=== PATIENT | male | born 1960 | race Caucasian/White ===

== ENCOUNTER 2023-05-11 12:19 | Outpatient (CLI) | payer OTHER, SELFPAY ==
--- NOTE | ~2023-05-11 | XR_ITS ---
Right Knee Technique: AP, lateral, and sunrise views were obtained. Clinical History: Pain Findings: No fracture or dislocation is seen. Osseous alignment is anatomic. There is mild degenerati ve spurring of the patella and intercondylar notch. Soft tissues are unremarkable. No joint effusion is seen. Impression: Mild degenerative spurring, as above. Reviewed, dictated and finalized at location . EAD MAINTENANCE SPECIALIST Impression: Mild degenerative spurring, as above.
== END 2023-05-11 12:20 | disposition home or self-care (01) ==
PROVIDERS: PCP Internal Medicine Infectious Disease; Visit Provider Orthopaedic Surgery
DX: M25.561 Pain in right knee (principal)
CPT/HCPCS: 73564

== ENCOUNTER 2023-11-23 08:03 | Outpatient (CLI) | payer OTHER, SELFPAY ==
--- NOTE | ~2023-11-23 | XR_ITS ---
Right Knee Technique: AP, lateral, and sunrise views were obtained. Clinical History: Pain Findings: No fracture or dislocation is seen. Osseous alignment is anatomic. Joint there is mild tric ompartmental degenerative change. Soft tissues are unremarkable. No joint effusion is seen. Impression: Mild tricompartmental degenerative change. Reviewed, dictated and finalized at [facility]. Impression: Mild tricompartmental degenerative change.
== END 2023-11-23 08:04 | disposition home or self-care (01) ==
PROVIDERS: PCP Internal Medicine Infectious Disease; Visit Provider Orthopaedic Surgery
DX: M17.11 Unilateral primary osteoarthritis, right knee (principal)
CPT/HCPCS: 73564

== ENCOUNTER 2024-01-17 07:31 | Outpatient (CLI) | payer OTHER, SELFPAY ==
--- NOTE | 2024-01-17 07:52 | ECG_ITS ---
Test Date: 2024-01-17 08:11:12 Measurements Intervals [place] Rate: 75 P: 42 [place]: 204 QRS: -16 QRSD: 112 T: 42 QT: 384 QTc: 429 Interpretive Statements SINUS RHYTHM No previous ECG available for comparison Electronically Signed On 01-17-2024 12:08:42 CDT by Martinez Doll M.D.
[2024-01-17 08:31] LABS: Hematocrit 51.3 % (42.0-52.0); Hemoglobin 17.7 g/dL (14.0-18.0)
[2024-01-17 09:03] LABS: Albumin Level 4.6 g/dL (3.5-5.1); Estimated Glomerular Filt Rate > 60; Glucose 180 mg/dL (65-110)
[2024-01-17 11:55] LABS: Hemoglobin A1C 7.4 % (<5.7)
== END 2024-01-17 07:32 | disposition home or self-care (01) ==
PROVIDERS: PCP Internal Medicine Infectious Disease; Visit Provider Orthopaedic Surgery
DX: M17.11 Unilateral primary osteoarthritis, right knee (principal); E11.9 Type 2 diabetes mellitus without complications
CPT/HCPCS: 36415; 82040; 82565; 82947; 83036; 85014; 85018; 93005

== ENCOUNTER 2024-01-31 14:20 | Outpatient (CLI) | payer OTHER, SELFPAY ==
--- NOTE | ~2024-01-31 | CT_ITS ---
EXAMINATION: CT LE RT wo con DATE: 01/31/2024 14:59 INDICATION: Right knee osteoarthritis. Preoperative planning. TECHNIQUE: Computed tomography (CT) of the right lower limb was performed without intravenous contras t. Automated exposure control and iterative reconstruction technique were employed. The dose-length p roduct was 1740.43 mGy-cm. COMPARISON: None FINDINGS: Alignment is normal. No fracture. There is moderate right hip osteoarthritis. Right knee de monstrates moderate osteoarthritis of lateral compartment and mild osteoarthritis of medial and lin lofemoral compartments. There is a small knee joint effusion. IMPRESSION: 1. Moderate right knee osteoarthritis. 2. Small right knee joint effusion. 3. Moderate right hip osteoarthritis. Reviewed, dictated and finalized at location A.
== END 2024-01-31 14:21 | disposition home or self-care (01) ==
PROVIDERS: PCP Internal Medicine Infectious Disease; Visit Provider Orthopaedic Surgery
DX: M17.11 Unilateral primary osteoarthritis, right knee (principal); M25.461 Effusion, right knee; M16.11 Unilateral primary osteoarthritis, right hip
CPT/HCPCS: 73700

== ENCOUNTER 2024-03-17 11:50 | Outpatient (CLI) | payer OTHER, SELFPAY ==
[2024-03-17 13:24] LABS: Basophils Percent Auto 0.5 % (0.2-1.2); Eosinophils Absolute Auto 0.2 K/mm3 (0-0.3); Eosinophils Percent Auto 2.4 % (0-4.4); Hematocrit 48.2 % (42.0-52.0); Hemoglobin 17.5 g/dL (14.0-18.0); Immature Granulocyte Absolute 0.02 K/mm3 (0.00-0.031); Immature Granulocyte Percent A 0.2 % (0-0.5); Lymphocytes Percent Auto 22.7 % (18.3-44.2); Mean Corpuscular HGB Conc 36.3 g/dl (32-36); Mean Corpuscular Hemoglobin 31.7 pg (26-34); Mean Corpuscular Volume 87.3 fl (80-100); Mean Platelet Volume 10.4 fl (7.4-10.4); Monocytes Absolute Auto 0.4 K/mm3 (0.1-0.6); Monocytes Percent Auto 4.3 % (2.6-8.5); Neutrophils Absolute Auto 5.8 K/mm3 (1.3-6.7); Neutrophils Percent Auto 69.9 % (45.5-73.1); Platelet Count Result 248 k/mm3 (150-375); Red Blood Count 5.52 M/mm3 (4.6-6.20); Red Cell Distribution Width 12.5 % (11.5-14.5); White Blood Count 8.4 K/mm3 (4.5-10.0)
[2024-03-17 13:30] LABS: Albumin Level 4.7 g/dL (3.5-5.1)
[2024-03-17 13:33] LABS: Anion Gap 9 mmol/L (4-12); Blood Urea Nitrogen 18 mg/dL (9-20); Calcium 9.4 mg/dL (8.4-10.2); Carbon Dioxide 28 mmol/L (22-30); Chloride 102 mmol/L (98-107); Estimated Glomerular Filt Rate > 60; Glucose 191 mg/dL (65-110); Potassium 3.7 mmol/L (3.4-5.0); Sodium 139 mmol/L (137-145)
[2024-03-17 13:49] LABS: Urine Cotinine NEGATIVE
[2024-03-17 14:34] LABS: MRSA (PCR) NOT DETECTED (NOT DETECTE)
== END 2024-03-17 11:51 | disposition home or self-care (01) ==
PROVIDERS: Anesthesiology; PCP Internal Medicine Infectious Disease; Visit Provider Orthopaedic Surgery
DX: M17.11 Unilateral primary osteoarthritis, right knee (principal); E11.9 Type 2 diabetes mellitus without complications; Z01.818 Encounter for other preprocedural examination
CPT/HCPCS: 36415; 80048; 80307; 82040; 85025; 87641

== ENCOUNTER 2024-04-03 01:17 | Day surgery (SDC) | payer OTHER, SELFPAY ==
[2024-03-17 12:18] VITALS: BMI 31.1
--- NOTE | 2024-03-17 12:38 | PC.NURSE ---
Report to the Outpatient Waiting Room, entrance under the green pavilion located off [facility], at time _0830am on date __04/03/24 . Planned Procedure Time: ___10:30am .? Time changes happen often and if your time is changed the preop area will call you the afternoon before. - You and your visitor will be asked to self-screen and do not enter if you have any COVID symptoms. Please call surgeon if you need to reschedule. - A mask is optional within the hospital at this time. Patients may have clear liquids (water, carbonated beverages, clear teas, apple juice) until 3 hours prior to surgery with a maximum of 20 ounces. - No food from midnight until time of surgery and no smoking. This includes no chewing gum, candy or mints. (07:30am) Take only the following medications with a SIP of water on the morning of surgery: DO NOT STOP ANY OF YOUR OTHER PRESCRIPTION MEDICATIONS PRIOR TO SURGERY EXCEPT THE FOLLOWING Medications to discontinue per physician Hold ASA [address] Kessler Date to take last dose 03/26/24 Hold all vitamins and supplements for 3 days prior to surgery per Anesthesia. Date to take last dose- 03/30/24 Pt to verify Celebrex & Instructions dosing too w Dr Kessler. Please no make-up, nail slovenian, hairspray, perfume, deodorant, or body powder the day of surgery.? No jewelry (including any body piercings) or valuables the day of surgery, leave them at home.? Please take a shower or bath the night before, or the morning of, surgery with an antibacterial soap.? Wear comfortable, loose fitting clothing.?Hibicleanse scrub per Dr Kessler. - Jewelry must be removed prior to entering the operating room.? Rings and piercings that are not removed may be cut off. - The hospital will not accept responsibility for valuables.? - Please leave all valuables, including medications, at home the day of surgery. If you are going home after surgery, a licensed stage driver must drive you home.? - NO public transportation without another adult if you receive anesthesia. - We recommend that an adult stay with you for 24 hours following discharge. - We also recommend that you do not drive, make important decision, drink alcoholic beverages, or take any drugs that were not prescribed by your health care provider for at least 24 hours after your discharge time. Follow any additional instructions given to you from your surgeon. Telephone instructions given to __Patient and asked if any additional questions and then verbalized understanding. Patient advised to call surgeon office or pre surgery nurse liaison [phone] if any additional questions.
[2024-04-03] VITALS (16 sets, daily range): BP systolic 128–154; BP diastolic 67–89; PULSE 57–105; RESP 12–20; TEMP 36.2–36.7; O2SAT 92–99
--- NOTE | ~2024-04-03 | XR_ITS ---
EXAMINATION: [id number]_[id number]_CR DATE: 04/03/2024 12:56 INDICATION: Postoperative evaluation following right total knee arthroplasty. TECHNIQUE: Anteroposterior and lateral views of the right knee were obtained. COMPARISON: None. FINDINGS: Right total knee arthroplasty with patellar resurfacing appears well seated and in near anatomic alig nment. No fractures identified. Expected postoperative subcutaneous and intra-articular gas. IMPRESSION: 1. Right total knee arthroplasty, negative for postoperative purposes. Reviewed, dictated and finalized at location A. DING OPERATOR
--- NOTE | 2024-04-03 07:24 | WPDHPUPDATE1 ---
History and Physical Update Update Date/Time: 04/03/24 07:24 History and Physical has been reviewed, including an updated exam of the patient. There are NO changes in the patient's condition. Risks, benefits, and alternatives have been discussed and questions answered. Patient agrees to proceed with procedure.
[2024-04-03] MEDS: LACTATED RINGERS 1,000 ML 30 ML IV CONT ×2 (08:45→12:40)
[2024-04-03] MEDS: TRANEXAMIC ACID 1,000MG/ISO100 1,000 MG/100 ML BAG 200 MG IVPB (08:45)
[2024-04-03 09:07] LABS: Glucose Point of Care 178 mg/dl (65-105)
[2024-04-03] MEDS: ACETAMINOPHEN 500 MG TABLET 1000 MG PO (09:13)
--- NOTE | 2024-04-03 09:23 | WPDANESEPPF ---
Anes - Initial Pre Proc Eval Procedure: Operation Date: 04/03/24 10:30 Proposed Procedures p Right Custom Total Knee Arthroplasty - Lucas Kessler MD Date/Time: 04/03/24 09:23 Surgeon: Lucas Kessler MD Pre Op Diagnosis: oa right knee Patient Data Age: 63 Gender: M Height: 1.78 m Weight: 97 kg Last Vital Signs Temp 36.3 C L 04/03/24 09:15 Pulse 85 04/03/24 09:15 Resp 16 04/03/24 09:15 BP 154/88 H 04/03/24 09:15 Pulse Ox 95 04/03/24 09:15 O2 Del Method Room Air 04/03/24 09:15 Allergies Allergy/AdvReac Type Severity Reaction Status Date / Time No Known Allergies Allergy Verified 03/17/24 12:06 Home Medications ?Medication ?Instructions ?Recorded ?Confirmed ?Type metformin 500 mg tablet 500 mg PO DAILY 02/23/21 04/03/24 History multivitamin 1 tablet PO DAILY 02/23/21 04/03/24 History omeprazole 20 mg capsule,delayed 20 mg PO DAILY 02/23/21 04/03/24 History release celecoxib 50 mg capsule (Celebrex) 50 mg PO DAILY 05/11/23 04/03/24 History pravastatin 20 mg tablet 20 mg PO DAILY 11/23/23 04/03/24 History aspirin 81 mg tablet,delayed 81 mg PO DAILY 12/31/23 04/03/24 History release bromelains 500 mg tablet 500 mg PO DAILY 03/17/24 04/03/24 History cetirizine 10 mg tablet (Zyrtec) 10 mg PO DAILY PRN Congestion 03/17/24 04/03/24 History fiber 1 cap PO DAILY 03/17/24 04/03/24 History garlic extract 400 mg tablet 400 mg PO DAILY 03/17/24 04/03/24 History glucosamine EWm-L2-Lejncxbbg 1 tablet PO DAILY 03/17/24 04/03/24 History mckay 1,500 mg-400 unit-100 mg tablet (Glucosamine Daily Complex) hydrochlorothiazide 25 mg tablet 25 mg PO DAILY 03/17/24 04/03/24 History latanoprost 0.005 % eye drops 1 drp ophthalmic (eye) DAILY 03/17/24 04/03/24 History omega 2-axb-umw-fish oil 100 20 cap PO DAILY 03/17/24 04/03/24 History mg-160 mg-1,000 mg capsule (Fish Oil) turmeric root extract 500 mg 500 mg PO BID 03/17/24 04/03/24 History capsule Laboratory Tests 04/03/24 08:58 POC Capillary Glucose 178 H mg/dl (65-105) Patient hx anesthesia problems: other (slow to awaken) Family hx anesthesia problems: none Results Review: All pre-operative results and documents have been reviewed as part of the pre-operative evaluation. [facility] Past Medical History Medical History Diabetes Surgical History Surgical History History of hernia repair H/O hernia repair Hx of tonsillectomy Family History Family History Father Diabetes mellitus Heart disease Mother COPD (chronic obstructive pulmonary disease) Son Diabetes mellitus Thyroid condition Social History Social History Smoking status: Never smoker Alcohol intake: never Do You Feel Safe in your Home?: Yes Lack of Transportation: No Lack of Food: Never True Current Housing: I Have Housing Concerned About Future Housing: No Difficulty Paying Gas/Electric Bills: No Difficulty Paying for Meds: No Currently Unemployed: Decline to Answer Education: High School Diploma/GED Difficulty w/ Childcare or Family Care: No Living arrangements: with family Additional living arrangements comments: son Occupation/Education: retired Anes - [employer] Final PreProcedure Day of Procedure 04/03/24 09:23 Patient weight: obese Heart: regular rate and rhythm Lungs: clear to auscultation Airway: Mallampati scale class II Neurological: alert and oriented Last oral intake: >/= 8 hours ASA classification: III Emergent: no Anesthetic plan: proceed Anesthesia type and monitoring: general LMA and standard monitoring Results Review: All pre-operative results and documents have been reviewed as part of the pre-operative evaluation. Informed Consent: The patient's anesthetic plan and its attendant risks and benefits were discussed with the patient/family/POA. Questions were solicited and answers provided to the satisfaction of the patient/family/POA.
[2024-04-03] MEDS: ceFAZolin 2 GM/D5W 50 ML 2 GM/50 ML BAG IVPB ×2 (10:13→17:26)
[2024-04-03] MEDS: SODIUM CHLORIDE 0.9% IV 37.7 ML, MORPHINE SULFATE INJ (*CRX) 2 MG, ROPivacaine HCL 1% 2... INFILTRATE (10:54)
[2024-04-03] MEDS: GENTAMICIN BONE CEMENT REFOBACIN 1 EACH TOPICAL (11:45)
[2024-04-03 12:49] LABS: Glucose Point of Care 204 mg/dl (65-105)
--- NOTE | 2024-04-03 12:57 | W.PM.PROC2 ---
Procedure Note - Detailed Date of Procedure 04/03/24 Pre-op Diagnosis Right knee degenerative arthritis. Post-op Diagnosis Same Procedure Performed Custom total knee arthroplasty, right Surgeon Lucas Kessler MD Banquet Set Up Person Lisa Fuentes PA-C Anesthesia General Findings Valgus disease. Popliteal and posterolateral capsule release. Description of Procedure Preoperative antibiotics were given. The limb was prepped and draped in the usual sterile fashion with a well-padded tourniquet high on the thigh. The limb was exsanguinated and the tourniquet inflated to 300 mmHg. A longitudinal incision was created just medial to the patella. A trivector approach to the knee was performed. Arthrotomy was taken down through the joint capsule. No significant releases were initially taken. The femur was exposed and the F1 jig was applied. The coring tool was used to remove the cartilage for the F2 jig to sit flush with the bone. The jig was pinned and the distal cut carefully taken. Caliper measurements confirmed appropriate bony resections according to the preoperative templated plan. The F4 cutting jig for the femur was applied, at the standard rotation. The AP and anterior chamfer cuts were taken. The F5 jig was applied and the posterior chamfer cuts were taken. The tibia was prepared using the T1 jig, after removing cartilage for the jig contact points. Proper alignment was checked with the alignment ashely. The tibia was cut using the T1u guide. Gap balancing was performed. Gap measurements were taken and the knee was trialed. Excellent alignment and soft tissue balancing was confirmed. The posterior cruciate ligament was recessed along the proximal tibia. The patella was cut for resurfacing. Three lug holes were drilled. Meniscal remnants were removed. The trial components were assembled. Excellent range of motion and proper soft tissue balancing were confirmed throughout the full range of motion. Patellar tracking was excellent. The knee was copiously irrigated periodically throughout the procedure. The real implants were cemented into position. Excess cement was carefully removed. The wound was closed in layers with interrupted #1 Vicryl suture, 2-0 strata fix suture, 0 strata fix suture, 2-0 strata fix suture. Steri-Strips placed on the skin with the knee flexed. Sterile bulky dressing applied. The patient was brought to the recovery room in stable condition. There were no complications. Physician assignment desk assistant, Lisa Fuentes PA-C, required for surgery; including patient positioning, draping, tissue retraction, maintaining instrument position, wound closure, and dressing placement. Implants Conformis Custom total knee arthroplasty. Cemented. Cruciate retaining. 8B insert. 38 mm oval patella. Estimated Blood Loss 100 Drains No Complications No immediate complications Condition Stable Disposition PACU [facility] Billing Surgery - Charge Forward: Surgery Billing
[2024-04-03] MEDS: fentaNYL CITRATE INJ (*CRX) 100 MCG/2 ML VIAL 25 MCG IV PUSH ×6 (13:15→13:36)
[2024-04-03] MEDS: HYDROmorphone HCL INJ (*CRX) 1 MG/ML SYR 0.5 MG IV PUSH ×4 (13:42→14:02)
[2024-04-03 15:20] LABS: Basophils Percent Auto 0.2 % (0.2-1.2); Eosinophils Percent Auto 0.1 % (0-4.4); Hemoglobin 15.2 g/dL (14.0-18.0); Immature Granulocyte Absolute 0.05 K/mm3 (0.00-0.031); Immature Granulocyte Percent A 0.5 % (0-0.5); Lymphocytes Absolute Auto 0.63 K/mm3 (0.9-3.2); Lymphocytes Percent Auto 5.9 % (18.3-44.2); Mean Corpuscular HGB Conc 35.3 g/dl (32-36); Mean Corpuscular Hemoglobin 31.1 pg (26-34); Mean Corpuscular Volume 88.1 fl (80-100); Mean Platelet Volume 10.3 fl (7.4-10.4); Monocytes Absolute Auto 0.1 K/mm3 (0.1-0.6); Monocytes Percent Auto 0.7 % (2.6-8.5); Neutrophils Percent Auto 92.6 % (45.5-73.1); Platelet Count Result 192 k/mm3 (150-375); Red Blood Count 4.88 M/mm3 (4.6-6.20); Red Cell Distribution Width 12.5 % (11.5-14.5); White Blood Count 10.8 K/mm3 (4.5-10.0)
[2024-04-03] MEDS: ACETAMINOPHEN 325 MG TABLET 650 MG PO ×2 (15:26→17:25)
[2024-04-03] MEDS: SODIUM CHLORIDE 0.9% IV 1,000 ML 125 ML IV CONT (15:28)
[2024-04-03] MEDS: ONDANSETRON INJ 4 MG/2 ML VIAL IV PUSH (15:29)
[2024-04-03 15:31] LABS: Anion Gap 5 mmol/L (4-12); Blood Urea Nitrogen 17 mg/dL (9-20); Calcium 8.4 mg/dL (8.4-10.2); Carbon Dioxide 27 mmol/L (22-30); Chloride 104 mmol/L (98-107); Estimated CRCL calculation 127 ml/min; Estimated Glomerular Filt Rate > 60; Glucose 264 mg/dL (65-110); Potassium 3.8 mmol/L (3.4-5.0); Sodium 136 mmol/L (137-145)
[2024-04-03 15:54] LABS: Atypical Lymphocytes Present; Macrocytosis 1+ (NORMAL); Schistocytes None Seen; Tear Drop Cells 1+
[2024-04-03 15:55] LABS: Giant Platelets Present; Large Platelets Present; Platelet Estimate Adequate (Adequate)
[2024-04-03] MEDS: SENNA/DOCUSATE SODIUM TABLET 2 TAB PO (17:25)
[2024-04-03] MEDS: predniSONE 5 MG TABLET PO (17:26)
[2024-04-03] MEDS: MELOXICAM 7.5 MG TABLET PO (17:26)
[2024-04-03] MEDS: traMADol HCL (*CRX) 50 MG TABLET PO (20:46)
[2024-04-03] MEDS: FAMOTIDINE 20 MG TABLET PO (20:46)
[2024-04-03] MEDS: ASPIRIN 81 MG ENTERIC TABLET PO (20:46)
[2024-04-04 00:19] VITALS: BP 125/54; PULSE 94; RESP 13; TEMP 36.3; O2SAT 97
[2024-04-04] MEDS: ACETAMINOPHEN 325 MG TABLET 650 MG PO ×2 (00:37→06:14)
[2024-04-04] MEDS: ceFAZolin 2 GM/D5W 50 ML 2 GM/50 ML BAG IVPB (00:47)
[2024-04-04 04:19] VITALS: BP 115/83; PULSE 94; RESP 14; TEMP 36.6; O2SAT 98
[2024-04-04 07:11] LABS: Basophils Percent Auto 0.3 % (0.2-1.2); Eosinophils Percent Auto 0.2 % (0-4.4); Hemoglobin 13.7 g/dL (14.0-18.0); Immature Granulocyte Absolute 0.04 K/mm3 (0.00-0.031); Immature Granulocyte Percent A 0.3 % (0-0.5); Lymphocytes Percent Auto 10.5 % (18.3-44.2); Mean Corpuscular HGB Conc 35.1 g/dl (32-36); Mean Corpuscular Hemoglobin 31.4 pg (26-34); Mean Corpuscular Volume 89.4 fl (80-100); Mean Platelet Volume 10.9 fl (7.4-10.4); Monocytes Absolute Auto 0.5 K/mm3 (0.1-0.6); Monocytes Percent Auto 4.7 % (2.6-8.5); Neutrophils Absolute Auto 9.6 K/mm3 (1.3-6.7); Platelet Count Result 200 k/mm3 (150-375); Red Blood Count 4.36 M/mm3 (4.6-6.20); Red Cell Distribution Width 12.5 % (11.5-14.5); White Blood Count 11.5 K/mm3 (4.5-10.0)
[2024-04-04 07:19] LABS: Anion Gap 2 mmol/L (4-12); Blood Urea Nitrogen 16 mg/dL (9-20); Calcium 8.3 mg/dL (8.4-10.2); Carbon Dioxide 29 mmol/L (22-30); Chloride 105 mmol/L (98-107); Estimated CRCL calculation 127 ml/min; Estimated Glomerular Filt Rate > 60; Glucose 198 mg/dL (65-110); Potassium 3.7 mmol/L (3.4-5.0); Sodium 136 mmol/L (137-145)
[2024-04-04] MEDS: oxyCODONE/ACETAMINOPHEN (*CRX) 5-325 MG TABLET 1 TABLET PO (07:58)
--- NOTE | 2024-04-04 08:18 | P.DS_ITS ---
DS: Admitting Diagnosis Discharge Date 04/04/24 Admitting Diagnosis knee arthritis DS: Discharge Diagnosis Discharge Diagnosis (1) Status post total right knee replacement: Code(s): Z96.651 - Presence of right artificial knee joint Status: Acute Assessment and Plan: Postop day 1: Right total knee arthroplasty. Patient tolerated procedure well. No complications. Pain manageable with pain medication. No numbness or tingling. We had a lengthy discussion regarding postoperative wound care, limitations, expectations, and exercises. Patient shows good understanding. He has had initial physical therapy and is tolerating it well. DVT prophylaxis: 81 mg baby aspirin b.i.d. for 14 days. Pain medication: Percocet. Patient has followup appointment with Dr. Kessler in 3 weeks. DS: Summary Hospital Course Reason for hospitalization: Total knee arthroplasty Hospital Course: Patient tolerated procedure well. Has had initial PT/OT. Status at Discharge Functional status at discharge: uses cane/walker Overall status at discharge: patient is progressing back to baseline Time Spent with Patient Time attestation: Total time spent providing and/or coordinating discharge services: Exam Narrative: 63 y/o Male. Resting comfortably in bed. Wearing compression socks bilaterally. Dressing intact with no drainage. Moderate swelling. Small area of ecchymosis. No erythema. No hematoma. Range of motion limited due to pain. Calf nontender. Neurologic status intact. No varicosities. Distal pulses palpable. DS: Data Data Completed and Pending Labs on day of discharge: Labs from last 24 hours 04/04/24 04/03/24 04/03/24 05:55 15:15 12:46 WBC 11.5 H 10.8 H RBC 4.36 L 4.88 Hgb 13.7 L 15.2 Hct 39.0 L 43.0 MCV 89.4 88.1 MCH 31.4 31.1 MCHC 35.1 35.3 RDW 12.5 12.5 Plt Count 200 192 MPV 10.9 H 10.3 Immature Gran % (Auto) 0.3 0.5 Neut % (Auto) 84.0 H 92.6 H Lymph % (Auto) 10.5 L 5.9 L [place] % (Auto) 4.7 0.7 L Eos % (Auto) 0.2 0.1 Baso % (Auto) 0.3 0.2 Lymph # (Auto) 1.20 0.63 L [place] # (Auto) 0.5 0.1 Eos # (Auto) 0.0 0.0 Baso # (Auto) 0.0 0.0 Abs Immat Gran (auto) 0.04 H 0.05 H Absolute Neuts (auto) 9.6 H 10.0 H Absolute Nucleated RBC 0.000 0.000 Nucleated RBC % 0.0 0.0 Atypical Lymphocytes Present Platelet Estimate Adequate Large Platelets Present Giant Platelets Present Macrocytosis 1+ Tear Drop Cells 1+ Schistocytes None seen Sodium 136 L 136 L Potassium 3.7 3.8 Chloride 105 104 Carbon Dioxide 29 27 Anion Gap 2 L 5 BUN 16 17 Creatinine 0.60 L 0.60 L Estim Creat Clear Calc 127 127 Estimated GFR > 60 > 60 Glucose 198 H 264 H POC Capillary Glucose 204 H Calcium 8.3 L 8.4 Blood Type Antibody Screen 04/03/24 04/03/24 08:58 08:56 WBC RBC Hgb Hct MCV MCH MCHC RDW Plt Count MPV Immature Gran % (Auto) Neut % (Auto) Lymph % (Auto) [place] % (Auto) Eos % (Auto) Baso % (Auto) Lymph # (Auto) [place] # (Auto) Eos # (Auto) Baso # (Auto) Abs Immat Gran (auto) Absolute Neuts (auto) Absolute Nucleated RBC Nucleated RBC % Atypical Lymphocytes Platelet Estimate Large Platelets Giant Platelets Macrocytosis Tear Drop Cells Schistocytes Sodium Potassium Chloride Carbon Dioxide Anion Gap BUN Creatinine Estim Creat Clear Calc Estimated GFR Glucose POC Capillary Glucose 178 H Calcium Blood Type O Positive Antibody Screen Negative Discharge Plan Discharge Patient Disposition: Home, Self-Care Discharge Instructions: See green instruction sheets Patient Language: Icelandic Stand Alone Forms: General Discharge Instructions Follow-up/Referrals: Lisa Fuentes PA [Physician Graphic Technician] - Discharge Medications: New prednisone 5 mg tablet 5 mg PO DAILY 21 Days Qty: 21 0RF oxycodone-acetaminophen 5-325 mg tablet 1 - 2 tablet PO Q4-6H MDD 6 PRN (Reason: pain) 7 Days Qty: 30 0RF Continued omeprazole 20 mg capsule,delayed release(DR/EC) 20 mg PO DAILY metformin 500 mg tablet 500 mg PO DAILY multivitamin Tablet 1 tablet PO DAILY celecoxib [Celebrex] 50 mg capsule 50 mg PO DAILY pravastatin 20 mg tablet 20 mg PO DAILY aspirin 81 mg tablet,delayed release (DR/EC) 81 mg PO DAILY bromelains 500 mg tablet 500 mg PO DAILY Rx Instructions: administer after a meal Fish Oil 100-160-1,000 mg capsule 20 cap PO DAILY cetirizine [Zyrtec] 10 mg tablet 10 mg PO DAILY PRN (Reason: Congestion) garlic extract 400 mg tablet 400 mg PO DAILY latanoprost 0.005 % drops 1 drp ophthalmic (eye) DAILY hydrochlorothiazide 25 mg tablet 25 mg PO DAILY vyitgjutish-F2-Gxpfoglfz serr [Glucosamine Daily Complex] 1,500-400-100 mg-unit-mg Tablet 1 tablet PO DAILY fiber Capsule 1 cap PO DAILY turmeric root extract 500 mg Capsule 500 mg PO BID
[2024-04-04] MEDS: metFORMIN HCL 500 MG TABLET PO (10:11)
[2024-04-04] MEDS: hydroCHLOROthiazide 25 MG TABLET PO (10:11)
[2024-04-04] MEDS: ASPIRIN 81 MG ENTERIC TABLET PO (10:11)
[2024-04-04] MEDS: PANTOPRAZOLE 40 MG TABLET PO (10:11)
[2024-04-04] MEDS: SENNA/DOCUSATE SODIUM TABLET 2 TAB PO (10:11)
[2024-04-04] MEDS: MELOXICAM 7.5 MG TABLET PO (10:11)
[2024-04-04] MEDS: PRAVASTATIN SODIUM 20 MG TABLET PO (10:11)
[2024-04-04] MEDS: FAMOTIDINE 20 MG TABLET PO (10:11)
[2024-04-04] MEDS: polyethylene glycoL 3350 17 GM POWD.PACK PO (10:11)
== END 2024-04-04 10:35 | disposition home or self-care (01) ==
LOC: ANHSURGERY 09:25 → ANH3MEDSUR 14:47
PROVIDERS: Physician Assistant Surgical; PCP Internal Medicine Infectious Disease; Visit Provider Orthopaedic Surgery
PROC: (CPT 27447; principal; 2024-04-03 10:30)
DX: M17.11 Unilateral primary osteoarthritis, right knee (principal); E11.9 Type 2 diabetes mellitus without complications; E66.9 Obesity, unspecified; Z68.30 Body mass index [BMI] 30.0-30.9, adult
CPT/HCPCS: 27447; 36415; 73560; 80048; 82948; 85025; 86850; 86900; 86901; 97110; 97161; 97165; A9270; C1713; C1776; J0171; J0690; J1100; J1171; J1885; J2003; J2250; J2270; J2405; J2704; J2795; J3010; J7030; J7120; J7512